=== PATIENT | female | born 1950 | race Two or more races ===

== ENCOUNTER 2017-03-12 21:52 | Inpatient (IN) | payer MEDICARE, BC ==
[~2017-03-12] VITALS: Ht 167.6 cm; Wt 66.2 kg
[2017-03-12 21:40] VITALS: BP 124/50
[2017-03-12] MEDS ORDERED: MAG HYDROX/AL HYDROX/SIMETH 30 ML UDC PO PRN (22:30)
[2017-03-12] MEDS ORDERED: MAGNESIUM HYDROXIDE 30 ML UDC PO PRN (22:30)
[2017-03-12] MEDS ORDERED: LORAZEPAM 0.5 MG TABLET PO PRN (22:30)
[2017-03-13] MEDS ORDERED: FLUT1BLS IH (03:24)
[2017-03-13] MEDS ORDERED: TAMS0.4C34 PO (03:24)
[2017-03-13] MEDS ORDERED: THIA100T74 PO (03:24)
[2017-03-13] MEDS ORDERED: FURO40TA5 PO (03:24)
[2017-03-13] MEDS ORDERED: LISI-603 PO (03:24)
[2017-03-13] MEDS ORDERED: VALP250C PO (03:24)
[2017-03-13] MEDS ORDERED: CARV12.5 PO (03:24)
[2017-03-13] MEDS ORDERED: ASPI-1152 PO (03:24)
[2017-03-13] MEDS ORDERED: IPRA3AMP IH (03:24)
[2017-03-13] MEDS ORDERED: PANT40TA4 PO (03:24)
[2017-03-13] MEDS ORDERED: SPIR25TA4 PO (03:24)
[2017-03-13] MEDS ORDERED: FOLI1TAB16 PO (03:24)
[2017-03-13] MEDS ORDERED: ATOR20TA PO (03:24)
[2017-03-13] MEDS ORDERED: CHOL100040 PO (03:24)
[2017-03-13] MEDS ORDERED: ALLO100T PO (03:24)
[2017-03-13] MEDS ORDERED: ONDA4TAB11 SL (03:24)
[2017-03-13 08:00] VITALS: BP 147/66
[2017-03-13] MEDS: LEVETIRACETAM (250 MG) 250 MG TABLET PO SCH ×2 (08:48→20:31)
[2017-03-13 09:08] LABS: ALBUMIN 3.3 g/dL (3.4-5.0); BILIRUBIN,TOTAL 0.4 mg/dL (0.2-1.0); CALCIUM, SERUM 10.1 mg/dL (8.5-10.1); POTASSIUM 3.6 mmol/L (3.5-5.1); TOTAL PROTEIN, SERUM 6.6 g/dL (6.4-8.2)
[2017-03-13 09:10] LABS: CHOLESTEROL 126 mg/dL (<200); HDL CHOLESTEROL 42 mg/dL (40-60); LDL 63 mg/dL (0-99); TRIGLYCERIDES 135 mg/dL (30-150)
[2017-03-13] MEDS: ACETAMINOPHEN 325 MG TABLET PO PRN ×2 (09:17→17:25)
[2017-03-13] MEDS ORDERED: LEVE1000 PO (09:45)
[2017-03-13] MEDS ORDERED: IPRA0.2S9 IH (09:45)
[2017-03-13] MEDS ORDERED: ACET-868 PO (09:45)
[2017-03-13 15:43] VITALS: BP 139/91
[2017-03-13] MEDS ORDERED: FUROSEMIDE 40 MG TABLET PO PRN (18:30)
[2017-03-13] MEDS ORDERED: ACETAMINOPHEN 325 MG TABLET PO PRN (18:30)
[2017-03-13] MEDS ORDERED: IPRATROPIUM NEB FS 0.5 MG/2.5 ML AMPUL.NEB IH PRN (18:30)
[2017-03-13] MEDS ORDERED: ONDANSETRON 4 MG TAB.RAPDIS SL PRN (18:30)
[2017-03-13 20:00] VITALS: BP 150/83
[2017-03-13] MEDS: DIVALPROEX SODIUM 125 MG TABLET.DR PO SCH (20:30)
[2017-03-13] MEDS: DIVALPROEX SODIUM 250 MG TABLET.DR PO SCH (20:31)
[2017-03-13] MEDS ORDERED: LEVETIRACETAM (250 MG) 250 MG TABLET PO SCH (21:00)
[2017-03-13] MEDS: ATORVASTATIN 10 MG TABLET PO SCH (21:53)
[2017-03-13] MEDS: ALLOPURINOL 100 MG TABLET PO SCH (21:53)
[2017-03-14] MEDS: ACETAMINOPHEN 325 MG TABLET PO PRN ×3 (02:30→16:26)
[2017-03-14] MEDS: ZOLPIDEM TARTRATE 5 MG TABLET PO PRN ×2 (02:30→20:46)
[2017-03-14] MEDS: PANTOPRAZOLE 40 MG TABLET.DR PO SCH (07:46)
[2017-03-14 08:00] VITALS: BP 150/81
[2017-03-14] MEDS: TAMSULOSIN 0.4 MG CAP.SR.24H PO SCH (08:53)
[2017-03-14] MEDS: FOLIC ACID 1 MG TABLET PO SCH (08:53)
[2017-03-14] MEDS: CHOLECALCIFEROL 1,000 UNIT TABLET (VIT D3) PO SCH (08:54)
[2017-03-14] MEDS: DIVALPROEX SODIUM 250 MG TABLET.DR PO SCH ×2 (08:54→20:49)
[2017-03-14] MEDS: LEVETIRACETAM (250 MG) 250 MG TABLET PO SCH ×2 (08:54→20:45)
[2017-03-14] MEDS: CARVEDILOL 12.5 MG TABLET PO SCH ×2 (08:54→16:26)
[2017-03-14] MEDS: DIVALPROEX SODIUM 125 MG TABLET.DR PO SCH ×2 (08:54→16:26)
[2017-03-14] MEDS: ESCITALOPRAM OXALATE (10 MG) 10 MG TABLET PO SCH (08:54)
[2017-03-14] MEDS: THIAMINE HCL 100 MG TABLET PO SCH (08:55)
[2017-03-14] MEDS: LISINOPRIL (20MG) 20 MG TABLET PO SCH ×2 (08:55→16:27)
[2017-03-14] MEDS: SPIRONOLACTONE 25 MG TABLET PO SCH ×2 (08:55→16:27)
[2017-03-14] MEDS: ASPIRIN EC 81 MG TABLET.DR PO SCH (08:55)
[2017-03-14] MEDS: FLUTICASONE/VILANTEROL 1 EACH BLST.W.DEV IH SCH (11:34)
[2017-03-14 16:55] VITALS: BP 102/56
[2017-03-14 20:00] VITALS: BP 109/58
[2017-03-14] MEDS: ATORVASTATIN 10 MG TABLET PO SCH (21:45)
[2017-03-14] MEDS: ALLOPURINOL 100 MG TABLET PO SCH (21:45)
[2017-03-15] MEDS: ACETAMINOPHEN 325 MG TABLET PO PRN (05:35)
[2017-03-15 08:00] VITALS: BP 118/59
[2017-03-15] MEDS: CARVEDILOL 12.5 MG TABLET PO SCH (08:46)
[2017-03-15] MEDS: FLUTICASONE/VILANTEROL 1 EACH BLST.W.DEV IH SCH (08:46)
[2017-03-15] MEDS: TAMSULOSIN 0.4 MG CAP.SR.24H PO SCH (08:47)
[2017-03-15] MEDS: THIAMINE HCL 100 MG TABLET PO SCH (08:47)
[2017-03-15] MEDS: ESCITALOPRAM OXALATE (10 MG) 10 MG TABLET PO SCH (08:47)
[2017-03-15] MEDS: CHOLECALCIFEROL 1,000 UNIT TABLET (VIT D3) PO SCH (08:47)
[2017-03-15] MEDS: SPIRONOLACTONE 25 MG TABLET PO SCH (08:47)
[2017-03-15] MEDS: DIVALPROEX SODIUM 250 MG TABLET.DR PO SCH (08:47)
[2017-03-15 08:48] VITALS: BP 118/59
[2017-03-15] MEDS: PANTOPRAZOLE 40 MG TABLET.DR PO SCH (08:48)
[2017-03-15] MEDS: LEVETIRACETAM (250 MG) 250 MG TABLET PO SCH (08:48)
[2017-03-15] MEDS: LISINOPRIL (20MG) 20 MG TABLET PO SCH (08:48)
[2017-03-15] MEDS: FOLIC ACID 1 MG TABLET PO SCH (08:48)
[2017-03-15] MEDS: ASPIRIN EC 81 MG TABLET.DR PO SCH (08:50)
[2017-03-15] MEDS ORDERED: MUPIROCIN OINT 2% 22 GM TUBE SCH (09:00)
== END 2017-03-15 16:05 | DRG 885 ==
LOC: GPS 21:52
PROVIDERS: ADMIT Psychiatry & Neurology Psychiatry; ATTEND Internal Medicine
DX: F39 Unspecified mood [affective] disorder (principal); G40.909 Epilepsy, unspecified, not intractable, without status epilepticus; J44.9 Chronic obstructive pulmonary disease, unspecified; F23 Brief psychotic disorder; E78.5 Hyperlipidemia, unspecified; F41.9 Anxiety disorder, unspecified; G47.33 Obstructive sleep apnea (adult) (pediatric); I10 Essential (primary) hypertension; I25.10 Atherosclerotic heart disease of native coronary artery without angina pectoris; Z86.73 Personal history of transient ischemic attack (TIA), and cerebral infarction without residual deficits; Z73.6 Limitation of activities due to disability; F43.21 Adjustment disorder with depressed mood
CPT/HCPCS: 36415; 80053-TC; 80061-TC; 87081-TC

== ENCOUNTER 2020-03-08 11:30 | Outpatient (CLI) | payer BC ==
[~2020-03-08 11:30] MED LIST: ACET-868 PO; ALLO100T PO; ASPI-1420 PO; ATOR20TA PO; CARV12.5 PO; CHOL100040 PO; FLUT1BLS IH; FOLI1TAB16 PO; FURO40TA5 PO; IPRA0.2S9 IH; LEVE1000 PO; LISI20TA30 PO; ONDA4TAB11 SL; PANT40TA49 PO; SPIR25TA6 PO; TAMS0.4C34 PO; THIA100T74 PO; VALP250C PO
== END 2020-03-08 23:59 | disposition home or self-care (01) ==
LOC: MSC 11:30
PROVIDERS: ATTEND Internal Medicine
DX: N39.0 Urinary tract infection, site not specified (principal); N32.81 Overactive bladder; I10 Essential (primary) hypertension; N17.9 Acute kidney failure, unspecified; J44.9 Chronic obstructive pulmonary disease, unspecified; R60.0 Localized edema; G47.00 Insomnia, unspecified; G47.33 Obstructive sleep apnea (adult) (pediatric); M48.061 Spinal stenosis, lumbar region without neurogenic claudication; E78.5 Hyperlipidemia, unspecified; K21.9 Gastro-esophageal reflux disease without esophagitis; J30.9 Allergic rhinitis, unspecified; F41.9 Anxiety disorder, unspecified; I67.83 Posterior reversible encephalopathy syndrome; I48.91 Unspecified atrial fibrillation; Z79.01 Long term (current) use of anticoagulants; Z79.51 Long term (current) use of inhaled steroids; Z79.899 Other long term (current) drug therapy

== ENCOUNTER 2020-05-05 13:44 | Outpatient (CLI) | payer BC | END 2020-05-05 23:59 | disposition home or self-care (01) | LOC: MSC 13:44 | PROVIDERS: ATTEND Internal Medicine | DX: L03.90 Cellulitis, unspecified (principal); L30.8 Other specified dermatitis; R60.9 Edema, unspecified; N39.0 Urinary tract infection, site not specified; I10 Essential (primary) hypertension; N17.9 Acute kidney failure, unspecified; R62.50 Unspecified lack of expected normal physiological development in childhood; G47.33 Obstructive sleep apnea (adult) (pediatric); M48.061 Spinal stenosis, lumbar region without neurogenic claudication; K21.9 Gastro-esophageal reflux disease without esophagitis; J30.9 Allergic rhinitis, unspecified; N32.81 Overactive bladder; G47.00 Insomnia, unspecified; F41.9 Anxiety disorder, unspecified; I48.91 Unspecified atrial fibrillation; Z79.01 Long term (current) use of anticoagulants; Z79.2 Long term (current) use of antibiotics; Z79.51 Long term (current) use of inhaled steroids; Z79.52 Long term (current) use of systemic steroids; Z79.899 Other long term (current) drug therapy ==

== ENCOUNTER → 2020-05-26 | Outpatient (CLI) | payer BC | END | disposition home or self-care (01) | LOC: MSC 12:45 | PROVIDERS: ATTEND Internal Medicine | DX: N39.0 Urinary tract infection, site not specified (principal); N32.81 Overactive bladder; L03.90 Cellulitis, unspecified; R60.9 Edema, unspecified; L30.8 Other specified dermatitis; I10 Essential (primary) hypertension; N17.9 Acute kidney failure, unspecified; J44.9 Chronic obstructive pulmonary disease, unspecified; Z72.0 Tobacco use; G47.33 Obstructive sleep apnea (adult) (pediatric); E78.5 Hyperlipidemia, unspecified; K21.9 Gastro-esophageal reflux disease without esophagitis; J30.9 Allergic rhinitis, unspecified; I48.91 Unspecified atrial fibrillation; Z79.01 Long term (current) use of anticoagulants; Z79.2 Long term (current) use of antibiotics; Z79.51 Long term (current) use of inhaled steroids; Z79.52 Long term (current) use of systemic steroids; Z79.899 Other long term (current) drug therapy ==

== ENCOUNTER → 2020-06-09 | Outpatient (CLI) | payer BC | END | disposition home or self-care (01) | LOC: MSC 14:00 | PROVIDERS: ATTEND Internal Medicine | DX: N39.0 Urinary tract infection, site not specified (principal); N32.81 Overactive bladder; E87.1 Hypo-osmolality and hyponatremia; I10 Essential (primary) hypertension; R60.9 Edema, unspecified; N17.9 Acute kidney failure, unspecified; J44.9 Chronic obstructive pulmonary disease, unspecified; Z72.0 Tobacco use; I48.91 Unspecified atrial fibrillation; Z79.01 Long term (current) use of anticoagulants; G47.33 Obstructive sleep apnea (adult) (pediatric); E78.5 Hyperlipidemia, unspecified; K21.9 Gastro-esophageal reflux disease without esophagitis; J30.9 Allergic rhinitis, unspecified; Z88.0 Allergy status to penicillin; Z79.51 Long term (current) use of inhaled steroids; Z79.52 Long term (current) use of systemic steroids; Z79.899 Other long term (current) drug therapy ==